=== PATIENT | female | born 1930 | race Caucasian/White ===

== ENCOUNTER 2016-07-12 16:21 | Emergency (ER) | payer OTHER ==
[~2016-07-12] VITALS: Ht 152.4 cm; Wt 88.0 kg
[~2016-07-12 16:21] MED LIST: ALBUAER19 INH; ASPI81TA28 PO; AZITTAB PO; CALC-452 PO; CHOL100010 PO; DENO60SO SC; FLUT0.0529 NAE; GLIM4TAB2 PO; INSDGIPEN SQ; LEVA3NEB NEB; METO50TA16 PO; OMEP20CA9 OR; OXGN; OXYC20TA50 PO; SERT50TA PO; SIMV40TA4 OR; [UNRECOGNIZED DRUG - CODE] EXT
[2016-07-12 16:27] VITALS: TEMP 37; Ht 152.4 cm; Wt 88.0 kg
--- NOTE | 2016-07-12 17:28 | EMERGENCY ROOM VISIT NOTE ---
History Report prepared by Shayla: Melinda Petit Under the Supervision of: Dr. Altaf Haskins M.D. First contact with patient: 17:18 Chief Complaint: FALL Stated Complaint: REFERRED BY History of Present Illness The patient is a 86 year old female who presents to the Emergency Room with complaints of persistent mid-sternal chest pain starting yesterday night. She fell down when she forgot to use her walker to come back to the bed from the bathroom. When her tried to get her up, she felt crack in the middle of her chest. She has worsening pain with palpation and movement. She has been taking OxyContin and Tylenol without relief. She denies headache, abdominal pain , or any other complaints. The patient normally wears oxygen at home. She was referred to the Emergency Room by her PCP. Source of History: patient Onset: yesterday night Position: chest (mid-sternal) Timing: other (persistent) Modifying Factors (Worsening): movement, other (palpation) Modifying Factors (Relieving): tylenol (without relief), other (OxyContin without relief) Associated Symptoms: No abdominal pain, No headache Review of Systems All systems have been listed, reviewed, and are negative other than those previously mentioned. Please see Additional Medical History Sheet. Past Medical & Surgical Medical Problems: (1) Arthritis (2) Bronchitis (3) CHF (congestive heart failure) (4) COPD (chronic obstructive pulmonary disease) (5) Diab Marilu Wo Compl, Type Ii Or Unspec Type, Not Uncntrld (6) Diabetes mellitus, insulin dependent (IDDM), controlled (7) Diverticulosis Colon (W/O Ment Of Hemorrhage) (8) Esophageal Reflux (9) Hyperlipidemia Nec/Nos (10) Hypertension Nos (11) Knee fracture, left (12) Osteoporosis Nos (13) Pneumonia Surgical Problems: (1) H/O left knee surgery Family History Cancer Social History Smoking Status: Never Smoker Marital Status: Housing Status: lives with family Occupation Status: retired Current/Historical Medications Scheduled Albuterol Hfa (Ventolin Hfa), 2-4 PUFFS INH Q6H Aspirin (Aspirin Ec), 81 MG PO DAILY Azithromycin (Zithromax Z-Sam), 250 MG PO UD Calcium Carbonate-Cholecalcife (Calcium 600 + D 600-200 mg-Unit), 0.5 TAB PO BID Cephalexin Monohydrate (Keflex), 250 MG PO QID Cholecalciferol (Vitamin D3), 1 TAB PO DAILY Denosumab (Prolia), 60 MG SC [id number] Docusate Sodium (Colace), 100 MG PO BID Fluticasone Propionate (Nasal) (Flonase Allergy Relief), 2 SPRAY ANGELA DAILY Glimepiride (Glimepiride), 8 MG PO DAILY Insulin Glargine (Lantus Solostar), 22 UNITS SQ QPM Insulin Glargine (Lantus), 12 UNITS SC QAM Levalbuterol (Levalbuterol HCl), 1 DOSE INH BID Levofloxacin (Levaquin), 250 MG PO DAILY Metoprolol Tartrate (Lopressor) (Lopressor), 50 MG PO BID Montelukast Sodium (Singulair), 10 MG PO DAILY Omeprazole (Prilosec), 20 MG OR HS Oxycodone Hcl (Oxycontin), 20 MG PO Q12 Oxygen (Oxygen), 2 LITERS NA CONTINOUS Sertraline (Zoloft), 100 MG PO DAILY Simvastatin (Zocor), 40 MG OR DAILY Allergies Coded Allergies: Latex1 -Allergic Contact Dermititis (Verified Allergy, Mild, 07/12/16) Lisinopril (Verified Allergy, Mild, HIVES, 07/12/16) Nabumetone (Verified Allergy, Mild, HIVES, 07/12/16) Naproxen (Verified Allergy, Mild, 07/12/16) Celecoxib (Verified Allergy, Unknown, Vertigo, change in mental status and fluid retention., 07/12/16) Source PT record [facility]. Iodinated Diagnostic Agents (Unverified Allergy, Unknown, UNKNOWN, 07/12/16 ) patient reports allergy to IV contrast Penicillins (Verified Allergy, Unknown, AMOXICILLIN, 07/12/16) Sulfa Drugs (Verified Allergy, Unknown, BACTRIM, 07/12/16) Sulfamethoxazole (Verified Allergy, Unknown, 07/12/16) Tetracyclines (Verified Allergy, Unknown, OXYTETRACYCLINE, 07/12/16) Trimethoprim (Verified Allergy, Unknown, BACTRIM, 07/12/16) Metformin (Verified Adverse Reaction, Unknown, Diarrhea, 07/12/16) Source Pt record [facility]. Physical Exam Vital Signs Date Time Temp Pulse Resp B/P Pulse Ox O2 Delivery O2 Flow Rate FiO2 07/12/16 20:31 74 17 128/67 94 07/12/16 18:53 78 16 143/78 92 Nasal Cannula 6.0 07/12/16 16:27 37.0 85 20 139/88 87 Room Air Physical Exam GENERAL: Patient awake, alert, oriented x 3. Patient follows commands. Patient does not appear toxic. Patient is adequately hydrated and well- nourished. SKIN: No erythema, pallor, cyanosis or rash HEENT: Normal head, pupils equal, reactive to light and accommodation. Ears normal. CHEST: Markedly tender over the mid sternum but no bruising or other signs of trauma. LUNGS: Clear to auscultation. No wheezes, no rales, no rhonchi. HEART: No murmurs. No gallops. No rubs ABDOMEN: No masses, no rebound, no hepatomegaly or splenomegaly. EXTREMITIES: No signs of trauma. No pedal or pretibial edema. No calf or thigh tenderness. NEUROLOGIC: Cranial nerves II-XII within normal limits. No gross motor sensory function deficits. Medical Decision & Procedures ER Provider Diagnostic Interpretation: X ray results are stated below per my interpretation and the radiologist's interpretation. CHEST CT WITHOUT CONTRAST CT DOSE: 350.11 mGy.cm HISTORY: Trauma fx sternum ?? TECHNIQUE: Multiaxial CT images of the chest were performed without contrast. COMPARISON: None. FINDINGS: Nondisplaced cortical fracture mid sternal manubrium. Degenerative change of the thoracic spine. Compression deformity of the low thoracic vertebral body felt to be old radiographically. Osteoporotic compression deformity of the midthoracic vertebral body considered nonacute radiographically. Generalized osteoporosis. Parenchymal infiltrate right and to lesser extent left base. Pulmonary disease considered clear. Moderate cardiomegaly. IMPRESSION: 1. Nondisplaced cortical fracture mid sternal manubrium. 2. 1 and possibly 2 osteoporotic compression deformities of the mid lower thoracic spine considered most likely old by CT criteria. 3. Bibasilar parenchymal infiltrative change. Electronically signed by: Mark Anthony Lopez M.D. 07/12/2016 6:27 PM Dictated Date/Time: 07/12/2016 6:22 PM Laboratory Results 07/12/16 17:46 Red Blood Count 5.29, Mean Corpuscular Volume 81.9, Mean Corpuscular Hemoglobin 27.6, Mean Corpuscular Hemoglobin Concent 33.7, Mean Platelet Volume 9.9, Neutrophils (%) (Auto) 81.6, Lymphocytes (%) (Auto) 8.2, Monocytes (%) (Auto) 6.6, Eosinophils (%) (Auto) 2.9, Basophils (%) (Auto) 0.5, Neutrophils # (Auto) 10.86, Lymphocytes # (Auto) 1.09, Monocytes # (Auto) 0.88, Eosinophils # (Auto) 0.39, Basophils # (Auto) 0.07 07/12/16 17:46 Test 07/12/16 17:46 White Blood Count 13.32 K/uL (4.8-10.8) Red Blood Count 5.29 M/uL (4.2-5.4) Hemoglobin 14.6 g/dL (12.0-16.0) Hematocrit 43.3 % (37-47) Mean Corpuscular Volume 81.9 fL (80-100) Mean Corpuscular Hemoglobin 27.6 pg (25-34) Mean Corpuscular Hemoglobin Concent 33.7 g/dl (32-36) Platelet Count 381 K/uL (130-400) Mean Platelet Volume 9.9 fL (7.4-10.4) Neutrophils (%) (Auto) 81.6 % Lymphocytes (%) (Auto) 8.2 % Monocytes (%) (Auto) 6.6 % Eosinophils (%) (Auto) 2.9 % Basophils (%) (Auto) 0.5 % Neutrophils # (Auto) 10.86 K/uL (1.4-6.5) Lymphocytes # (Auto) 1.09 K/uL (1.2-3.4) Monocytes # (Auto) 0.88 K/uL (0.11-0.59) Eosinophils # (Auto) 0.39 K/uL (0-0.5) Basophils # (Auto) 0.07 K/uL (0-0.2) RDW Standard Deviation 44.8 fL (36.4-46.3) RDW Coefficient of Variation 14.9 % (11.5-14.5) Immature Granulocyte % (Auto) 0.2 % Immature Granulocyte # (Auto) 0.03 K/uL (0.00-0.02) Prothrombin Time 11.3 SECONDS (9.0-12.0) Prothromb Time International Ratio 1.1 (0.9-1.1) Activated Partial Thromboplast Time 27.5 SECONDS (21.0-31.0) Partial Thromboplastin Ratio 1.1 Anion Gap 10.0 mmol/L (3-11) Est Creatinine Clear Calc Drug Dose 45.8 ml/min Estimated GFR () 69.9 Estimated GFR (Non- 60.3 BUN/Creatinine Ratio 15.3 (10-20) Calcium Level 9.1 mg/dl (8.5-10.1) Total Bilirubin 0.4 mg/dl (0.2-1) Aspartate Amino Transf (AST/SGOT) 18 U/L (15-37) Alanine Aminotransferase (ALT/SGPT) 14 U/L (12-78) Alkaline Phosphatase 118 U/L (45-117) Troponin I < 0.015 ng/ml (0-0.045) Total Protein 7.4 gm/dl (6.4-8.2) Albumin 3.3 gm/dl (3.4-5.0) Globulin 4.1 gm/dl (2.5-4.0) Albumin/Globulin Ratio 0.8 (0.9-2) Beta-Hydroxybutyric Acid 2.22 mg/dL (0.2-2.81) Laboratory results as stated above per my review. Medications Administered Medications (Trade) Dose Ordered Sig/Roger Route Start Time Stop Time Status Last Admin Dose Admin Morphine Sulfate (MoRPHine SULFATE INJ) 2 mg Q30M PRN IV 07/12/16 17:30 07/12/16 20:56 DC 07/12/16 18:03 2 MG Ondansetron HCl (Zofran Inj) 4 mg Q1HWA PRN IV 07/12/16 17:30 07/12/16 20:56 DC 07/12/16 18:03 4 MG ECG Indication: chest pain Rate (beats per minute): 74 Rhythm: normal sinus Findings: no acute ischemic change, no ectopy ED Course 1718: Past medical records reviewed. The patient was evaluated in room C05. A complete history and physical examination was performed. 1730: Zofran Inj 4 mg IV, Morphine Sulfate 2 mg IV 1855: I reevaluated the patient who is resting comfortably. 5: Upon reevaluation, the patient appeared to have improvement of her symptoms. I discussed today's findings with her. She verbalized agreement of the treatment plan. She was discharged home. Medical Decision Differential diagnosis includes but is not limited to sternal contusion, sternal fracture, rib fracture, COPD, myocardial infarction, ischemic heart disease. Multiple labs, EKG and imaging were obtained. Please see above. The patient's blood sugar is elevated. She states that she did not take her insulin today. Patient has a cortical sternal fracture. This is consistent with her history and physical findings. The patient also has vertebral fractures which are old. The patient prefers not to be admitted. The patient will be sent home. She is has OxyContin at home. She will continue that along with Colace. The patient will require follow-up by her family physician within the next several days. Impression Primary Impression: Sternal fracture Additional Impression: Diabetes mellitus out of control Scribe Attestation The scribe's documentation has been prepared under my direction and personally reviewed by me in its entirety. I confirm that the note above accurately reflects all work, treatment, procedures, and medical decision making performed by me. Departure Information Dispostion Home / Self-Care Prescriptions Docusate Sodium (COLACE) 100 Mg Cap 100 MG PO BID, #30 CAP Prov: Altaf Haskins M.D. 07/12/16 Referrals Tri Mora M.D. (PCP) Forms HOME CARE DOCUMENTATION FORM, IMPORTANT VISIT INFORMATION Patient Instructions My [facility] Additional Instructions Continue taking OxyContin as needed for pain. Colace twice a day. Continue all of your other medications as prescribed including insulin. Follow-up with Dr. Mora within the next 3-or 4 days. Problem Qualifiers
[2016-07-12] MEDS ORDERED: ONDANSETRON INJ 2 MG/ML 2 ML VIAL IV PRN (17:30)
[2016-07-12] MEDS ORDERED: MoRPHine SULFATE 4 MG/ML 1 ML CARP\\VIAL IV PRN (17:30)
[2016-07-12 17:56] LABS: BASO % 0.5 %; BASO ABS # 0.07 K/uL (0-0.2); COMPLETE YES; EOS % 2.9 %; HEMATOCRIT 43.3 % (37-47); IG% 0.2 %; LYMPH % 8.2 %; LYMPH ABS # 1.09 K/uL (1.2-3.4); MEAN CELL VOLUME 81.9 fL (80-100); MEAN CORPUSCULAR HEMOGLOBIN 27.6 pg (25-34); MEAN CORPUSCULAR HGB CONC 33.7 g/dl (32-36); MEAN PLATELET VOLUME 9.9 fL (7.4-10.4); MONO % 6.6 %; NEUT % 81.6 %; PLATELET COUNT 381 K/uL (130-400); RED BLOOD COUNT 5.29 M/uL (4.2-5.4); WHITE BLOOD COUNT 13.32 K/uL (4.8-10.8)
[2016-07-12 18:05] LABS: INR 1.1 (0.9-1.1); PARTIAL THROMBOPLASTIN RATIO 1.1; PROTHROMBIN TIME (PATIENT) 11.3 SECONDS (9.0-12.0)
[2016-07-12 18:17] LABS: ALT/SGPT 14 U/L (12-78); BLOOD UREA NITROGEN 13 mg/dl (7-18); BUN/CREATININE RATIO 15.3 (10-20); CALCIUM 9.1 mg/dl (8.5-10.1); CARBON DIOXIDE 27 mmol/L (21-32); CHLORIDE 99 mmol/L (98-107); CREATININE 0.87 mg/dl (0.60-1.20); GLUCOSE 310 mg/dl (70-99); POTASSIUM 4.4 mmol/L (3.5-5.1); SODIUM 136 mmol/L (136-145)
[2016-07-12 18:19] LABS: ALB/GLOB RATIO 0.8 (0.9-2); AST/SGOT 18 U/L (15-37)
[2016-07-12 18:26] LABS: ALKALINE PHOSPHATASE 118 U/L (45-117); BETA-HYDROXYBUTYRATE 2.22 mg/dL (0.2-2.81)
--- NOTE | 2016-07-12 18:28 | DIAGNOSTIC IMAGING REPORT ---
CHEST CT WITHOUT CONTRAST CT DOSE: 350.11 mGy.cm HISTORY: Trauma fx sternum ?? TECHNIQUE: Multiaxial CT images of the chest were performed without contrast. COMPARISON: None. FINDINGS: Nondisplaced cortical fracture mid sternal manubrium. Degenerative change of the thoracic spine. Compression deformity of the low thoracic vertebral body felt to be old radiographically. Osteoporotic compression deformity of the midthoracic vertebral body considered nonacute radiographically. Generalized osteoporosis. Parenchymal infiltrate right and to lesser extent left base. Pulmonary disease considered clear. Moderate cardiomegaly. IMPRESSION: 1. Nondisplaced cortical fracture mid sternal manubrium. 2. 1 and possibly 2 osteoporotic compression deformities of the mid lower thoracic spine considered most likely old by CT criteria. 3. Bibasilar parenchymal infiltrative change. Electronically signed by: Mark Anthony Lopez M.D. 07/12/2016 6:27 PM Dictated Date/Time: 07/12/2016 6:22 PM
[2016-07-12] MEDS ORDERED: VNTHFA/IN INH (18:58)
[2016-07-12] MEDS ORDERED: XPNINS INH (18:58)
[2016-07-12] MEDS ORDERED: CHOL1000 PO (18:58)
[2016-07-12] MEDS ORDERED: INSDGI SC (18:58)
[2016-07-12] MEDS ORDERED: LEVO-17 PO (18:58)
[2016-07-12] MEDS ORDERED: FLUT0.15 NAE (18:58)
[2016-07-12] MEDS ORDERED: KFL/250 PO (18:58)
[2016-07-12] MEDS ORDERED: MONT1TAB3 PO (18:58)
[2016-07-12] MEDS ORDERED: DOCU-94 PO (19:16)
[2016-07-12 20:31] VITALS: BP 128/67; PULSE 74; O2SAT 94
== END 2016-07-12 20:34 | disposition home or self-care (01) ==
LOC: C.EDB 16:23 → C.EDC 20:34
DX: S22.21XA Fracture of manubrium, initial encounter for closed fracture (principal); E11.65 Type 2 diabetes mellitus with hyperglycemia; J44.9 Chronic obstructive pulmonary disease, unspecified; E78.5 Hyperlipidemia, unspecified; I10 Essential (primary) hypertension; M81.0 Age-related osteoporosis without current pathological fracture; K21.9 Gastro-esophageal reflux disease without esophagitis; Z79.4 Long term (current) use of insulin; Z79.82 Long term (current) use of aspirin; Z79.899 Other long term (current) drug therapy; Z99.81 Dependence on supplemental oxygen; Z87.01 Personal history of pneumonia (recurrent); Z87.19 Personal history of other diseases of the digestive system; W19.XXXA Unspecified fall, initial encounter

== ENCOUNTER → 2017-09-20 | Outpatient (CLI) | payer OTHER ==
[~2017-09-20] MED LIST changes: -ALBUAER19 INH; +CHOL1000 PO; -CHOL100010 PO; -FLUT0.0529 NAE; +FLUT0.15 NAE; +INSDGI SC; +KFL/250 PO; -LEVA3NEB NEB; +LEVO-17 PO; +MONT1TAB3 PO; +VNTHFA/IN INH; +XPNINS INH; -[UNRECOGNIZED DRUG - CODE] EXT
== END | disposition home or self-care (01) ==
LOC: C.LABBC 12:33
PROVIDERS: ATTEND Optometrist
DX: H49.02 Third [oculomotor] nerve palsy, left eye (principal)